=== PATIENT | female | born 1945 ===

== ENCOUNTER 2023-05-31 08:22 | Inpatient (IN) | payer MEDICARE, BC ==
[2023-05-31 08:35] LABS: BASOPHILS PERCENT AUTO 0.4 % (0.0-1.0); EOSINOPHILS PERCENT AUTO 1.8 % (1.0-3.0); HEMATOCRIT 39.3 % (37.0-47.0); HEMOGLOBIN 12.1 g/dL (12.0-16.0); MEAN CORPUSCULAR HEMOGLOBIN 31.3 pg (27.0-34.0); MEAN CORPUSCULAR HGB CONC 30.8 g/dL (33.0-35.0); MEAN CORPUSCULAR VOLUME 101.8 fL (80-100); MONOCYTES PERCENT AUTO 6.7 % (2-8); NEUTROPHILS PERCENT AUTO 78.1 % (42.2-75.2); PLATELET COUNT,PLT 260 10^3/uL (150-450); RED BLOOD CELL COUNT 3.86 10^6/uL (4.2-5.4)
[2023-05-31] MEDS: Sodium Chloride 0.9% 10 ML Syringe FLUSH PRN (08:52)
[2023-05-31 08:53] LABS: INR 0.9 (0.9-1.2); PROTHROMBIN TIME 9.5 SEC (9.0-12.0); PTT,PARTIAL THROMBOPLSTIN TIME 27.2 SEC (22.0-34.0)
[2023-05-31] MEDS ORDERED: Nitroglycerin 0.4 MG Tab.SL SL ONE (09:18)
[2023-05-31 09:32] LABS: A/G RATIO 0.9; ALBUMIN 3.8 g/dL (3.4-5.0); ANION GAP 15.8 mEq/L (7-13); BILIRUBIN TOTAL 0.4 mg/dL (0.2-1.0); BUN/CREATININE RATIO 11.5 (No establ ref range); C-REACTIVE PROTEIN 1.8 mg/dL (0.0-0.9); CALCIUM 8.5 mg/dL (8.5-10.1); CREATININE 0.96 mg/dL (0.55-1.02); EST CRCL DRUG DOSING (CG) 37.03 mL/min; MAGNESIUM 2.1 mg/dL (1.8-2.4); POTASSIUM,K 3.8 mmol/L (3.5-5.1); PROTEIN TOTAL,TP 7.9 g/dL (6.4-8.2)
[2023-05-31 09:36] LABS: LACTIC ACID 1.3 mmol/L (0.4-2.0)
[2023-05-31 10:49] LABS: BILIRUBIN,URINE NEGATIVE (NEGATIVE); COLOR,URINE YELLOW (YELLOW); GLUCOSE,URINE NEGATIVE (NEGATIVE); KETONES,URINE TRACE (NEGATIVE); LEUKOCYTE ESTERASE,URINE SMALL (NEGATIVE); NITRITE,URINE POSITIVE (NEGATIVE); OCCULT BLOOD,URINE TRACE-INTACT (NEGATIVE); PH,URINE 5.5 (5.0-9.0); PROTEIN,URINE NEGATIVE (NEGATIVE); UROBILINOGEN,URINE 0.2 mg/dL (0.2-1.0)
[2023-05-31] MEDS ORDERED: methylPREDNISolone Sodium Succinate 125 MG/2 ML SDV IVPUSH ONE (10:50)
[2023-05-31 10:51] LABS: APPEARANCE,URINE SLIGHTLY CLOUDY (CLEAR)
[2023-05-31] MEDS ORDERED: Cefuroxime 250 MG Tab PO ONE (10:52)
[2023-05-31 10:57] LABS: BACTERIA,URINE MANY /HPF (0-FEW/HPF); EPITHELIAL CELLS,URINE FEW /HPF (NOT SEEN); RBC,URINE NOT SEEN /HPF (0-5); WBC,URINE 20-30 /HPF (0-5/HPF)
[2023-05-31] MEDS ORDERED: Albuterol/Ipratropium 3.0-0.5 MG/3 ML Neb Soln NEB ONE ×2 (11:16→11:35)
[2023-05-31] MEDS ORDERED: Atenolol 50 MG Tab PO ONE (12:38)
[2023-05-31] MEDS ORDERED: Polyethylene Glycol 3350 Powder 17 GM Packet PO PRN (12:59)
[2023-05-31] MEDS ORDERED: Docusate Sodium 100 MG Cap PO PRN (12:59)
[2023-05-31] MEDS ORDERED: Amiodarone 200 MG Tab PO SCH ×2 (13:30→14:00)
[2023-05-31] MEDS ORDERED: amLODIPine 5 MG Tab PO SCH ×2 (13:31→14:00)
[2023-05-31] MEDS ORDERED: DILTIAZEM HCL 180 MG PO SCH (13:32)
[2023-05-31] MEDS ORDERED: Apixaban 5 MG Tab PO SCH ×2 (15:30→21:00)
[2023-05-31] MEDS: Ciprofloxacin 500 MG Tab PO SCH ×2 (15:55→20:21)
[2023-05-31] MEDS: Acetaminophen 325 MG Tab PO PRN ×2 (15:56→20:26)
[2023-05-31] MEDS: Pantoprazole 40 MG Tab.CR PO SCH (15:56)
[2023-05-31] MEDS: amLODIPine 5 MG Tab PO SCH ×2 (15:58→20:22)
[2023-05-31] MEDS: Diltiazem 180 MG Cap.CD PO SCH (15:58)
[2023-05-31] MEDS: Atenolol 50 MG Tab PO SCH ×2 (15:59→20:24)
[2023-05-31] MEDS: DULoxetine 30 MG Cap PO SCH (16:08)
[2023-05-31] MEDS: Magnesium Oxide 400 MG Tab PO SCH (16:09)
[2023-05-31] MEDS: busPIRone 15 MG Tab PO SCH ×2 (16:09→20:22)
[2023-05-31] MEDS: Levothyroxine 125 MCG Tab PO SCH (16:09)
[2023-05-31] MEDS: atorvaSTATin 20 MG Tab PO SCH (16:11)
[2023-05-31] MEDS: Pregabalin 75 MG Cap PO SCH (20:21)
[2023-05-31] MEDS: Apixaban 5 MG Tab PO SCH (20:21)
[2023-05-31] MEDS: Docusate Sodium 100 MG Cap PO SCH (20:21)
[2023-05-31] MEDS ORDERED: rOPINIRole 2 MG Tab PO SCH (21:00)
[2023-05-31] MEDS ORDERED: Non-Formulary Medication 1 Each (Ropinirole [Requip] 1 MG Tablet) PO SCH (21:00)
[2023-05-31] MEDS ORDERED: busPIRone 15 MG Tab PO SCH (21:00)
[2023-05-31] MEDS ORDERED: Atenolol 50 MG Tab PO SCH (21:00)
[2023-05-31] MEDS ORDERED: Docusate Sodium 100 MG Cap PO SCH (21:00)
[2023-05-31] MEDS ORDERED: oxyCODONE 5 MG Tab PO ONE (23:18)
[2023-06-01] MEDS: Acetaminophen 325 MG Tab PO PRN (03:44)
[2023-06-01] MEDS: Pantoprazole 40 MG Tab.CR PO SCH (06:10)
[2023-06-01] MEDS: Levothyroxine 125 MCG Tab PO SCH (06:10)
[2023-06-01] MEDS: Albuterol 0.083% 2.5 MG/3 ML Neb Soln NEB PRN (08:55)
[2023-06-01] MEDS ORDERED: Non-Formulary Medication 1 Each (Atorvastatin [Lipitor] 40 MG Tablet) PO SCH (09:00)
[2023-06-01] MEDS ORDERED: amLODIPine 5 MG Tab PO SCH (09:00)
[2023-06-01] MEDS ORDERED: Enoxaparin 40 MG/0.4 ML Syringe SUBCUT SCH (09:00)
[2023-06-01] MEDS ORDERED: TORSEMIDE 10 MG PO SCH (09:00)
[2023-06-01] MEDS ORDERED: Ferrous Sulfate 325 MG Tab PO SCH (09:00)
[2023-06-01] MEDS ORDERED: Non-Formulary Medication 1 Each (Sennosides [Senna] 8.6 MG Tablet) PO SCH ×2 (09:00)
[2023-06-01] MEDS ORDERED: Non-Formulary Medication 1 Each (Magnesium Oxide [Magnesium Oxide] 400 MG Tablet) PO SCH (09:00)
[2023-06-01] MEDS ORDERED: DILTIAZEM HCL 180 MG PO SCH (09:00)
[2023-06-01] MEDS ORDERED: DULoxetine 30 MG Cap PO SCH (09:00)
[2023-06-01] MEDS ORDERED: Non-Formulary Medication 1 Each (Calcium Carbonate/Vitamin D3 [Calcium 600 Mg-Vit D3 10mcg PO SCH (09:00)
[2023-06-01] MEDS ORDERED: Amiodarone 200 MG Tab PO SCH (09:00)
[2023-06-01] MEDS ORDERED: Levothyroxine 125 MCG Tab PO SCH (09:00)
[2023-06-01] MEDS ORDERED: Pantoprazole 40 MG Tab.CR PO SCH (09:00)
[2023-06-01] MEDS: Pregabalin 75 MG Cap PO SCH ×2 (09:52→22:02)
[2023-06-01] MEDS: Lidocaine 5% 700 MG Patch TOP SCH (09:52)
[2023-06-01] MEDS: DULoxetine 30 MG Cap PO SCH (09:53)
[2023-06-01] MEDS: amLODIPine 5 MG Tab PO SCH ×2 (09:53→22:00)
[2023-06-01] MEDS: Acetaminophen 325 MG Tab PO SCH ×3 (09:54→20:12)
[2023-06-01] MEDS: Docusate Sodium 100 MG Cap PO SCH ×2 (09:55→22:01)
[2023-06-01] MEDS: predniSONE 20 MG Tab PO SCH (09:56)
[2023-06-01] MEDS: Torsemide 20 MG Tab PO SCH (09:56)
[2023-06-01] MEDS: Calcium Carbonate/Vitamin D3 1250 MG-5 MCG Tab PO SCH (09:57)
[2023-06-01] MEDS: busPIRone 15 MG Tab PO SCH ×2 (09:57→22:02)
[2023-06-01] MEDS: Diltiazem 180 MG Cap.CD PO SCH (09:57)
[2023-06-01] MEDS: Atenolol 50 MG Tab PO SCH ×2 (09:58→22:00)
[2023-06-01] MEDS: Ferrous Sulfate 325 MG Tab PO SCH (09:59)
[2023-06-01] MEDS: atorvaSTATin 20 MG Tab PO SCH (09:59)
[2023-06-01] MEDS: Magnesium Oxide 400 MG Tab PO SCH (10:00)
[2023-06-01] MEDS: Ciprofloxacin 500 MG Tab PO SCH ×2 (10:01→22:02)
[2023-06-01] MEDS: Apixaban 5 MG Tab PO SCH ×2 (10:07→22:02)
[2023-06-01] MEDS: rOPINIRole 2 MG Tab PO SCH ×2 (10:07→22:02)
[2023-06-01] MEDS: ALPRAZolam 0.25 MG Tab PO SCH ×3 (10:56→22:03)
[2023-06-01] MEDS: Sodium Chloride 0.9% 10 ML Syringe FLUSH PRN ×2 (22:07→22:08)
[2023-06-02] MEDS: Albuterol 0.083% 2.5 MG/3 ML Neb Soln NEB PRN
[2023-06-02] MEDS: Acetaminophen 325 MG Tab PO SCH ×3 (02:37→05:07)
[2023-06-02] MEDS: Levothyroxine 125 MCG Tab PO SCH (05:06)
[2023-06-02] MEDS: Pantoprazole 40 MG Tab.CR PO SCH (05:07)
[2023-06-02 06:53] LABS: ANION GAP 11.6 mEq/L (7-13); BASOPHILS PERCENT AUTO 0.1 % (0.0-1.0); CALCIUM 7.5 mg/dL (8.5-10.1); CREATININE 0.9 mg/dL (0.55-1.02); EOSINOPHILS PERCENT AUTO 0.5 % (1.0-3.0); EST CRCL DRUG DOSING (CG) 39.5 mL/min; LYMPHOCYTES PERCENT AUTO 13.8 % (20.5-50.1); MEAN CORPUSCULAR HEMOGLOBIN 31.1 pg (27.0-34.0); MEAN CORPUSCULAR HGB CONC 29.7 g/dL (33.0-35.0); MEAN CORPUSCULAR VOLUME 104.8 fL (80-100); MONOCYTES PERCENT AUTO 8.2 % (2-8); NEUTROPHILS PERCENT AUTO 77.4 % (42.2-75.2); PLATELET COUNT,PLT 255 10^3/uL (150-450); POTASSIUM,K 3.6 mmol/L (3.5-5.1); RED BLOOD CELL COUNT 3.15 10^6/uL (4.2-5.4); WHITE BLOOD CELL COUNT,WBC 9.4 10^3/uL (5.0-10.0)
[2023-06-02 07:03] LABS: HEMOGLOBIN 9.8 g/dL (12.0-16.0)
[2023-06-02] MEDS: DULoxetine 30 MG Cap PO SCH (08:33)
[2023-06-02] MEDS: Diltiazem 180 MG Cap.CD PO SCH (08:33)
[2023-06-02] MEDS: amLODIPine 5 MG Tab PO SCH (08:33)
[2023-06-02] MEDS: Ciprofloxacin 500 MG Tab PO SCH (08:33)
[2023-06-02] MEDS: busPIRone 15 MG Tab PO SCH (08:33)
[2023-06-02] MEDS: Ferrous Sulfate 325 MG Tab PO SCH (08:33)
[2023-06-02] MEDS: atorvaSTATin 20 MG Tab PO SCH (08:33)
[2023-06-02] MEDS: Apixaban 5 MG Tab PO SCH (08:33)
[2023-06-02] MEDS: Pregabalin 75 MG Cap PO SCH (08:34)
[2023-06-02] MEDS: ALPRAZolam 0.25 MG Tab PO SCH (08:34)
[2023-06-02] MEDS: Calcium Carbonate/Vitamin D3 1250 MG-5 MCG Tab PO SCH (08:34)
[2023-06-02] MEDS: predniSONE 20 MG Tab PO SCH (08:34)
[2023-06-02] MEDS: Torsemide 20 MG Tab PO SCH (08:35)
[2023-06-02] MEDS: Atenolol 50 MG Tab PO SCH (08:35)
[2023-06-02] MEDS: Docusate Sodium 100 MG Cap PO SCH (08:35)
[2023-06-02] MEDS: Magnesium Oxide 400 MG Tab PO SCH (08:38)
[2023-06-02] MEDS ORDERED: traMADol 50 MG Tab PO ONE (08:44)
[2023-06-02] MEDS: Lidocaine 5% 700 MG Patch TOP SCH (08:45)
[2023-06-02] MEDS: rOPINIRole 2 MG Tab PO SCH (09:04)
== END 2023-06-02 11:51 | disposition home or self-care (01) | DRG 204 ==
LOC: DL.ED 08:22 → DL.MS 12:59 → DL.ED 14:00 → OBSVTOIN 06-01 16:39
PROVIDERS: ADMIT Emergency Medicine; ATTEND Emergency Medicine
DX: R06.03 Acute respiratory distress (principal); R09.02 Hypoxemia; N30.91 Cystitis, unspecified with hematuria; I10 Essential (primary) hypertension; R60.9 Edema, unspecified; G25.81 Restless legs syndrome; G89.29 Other chronic pain; M54.50 Low back pain, unspecified; N39.0 Urinary tract infection, site not specified; F41.9 Anxiety disorder, unspecified; E78.00 Pure hypercholesterolemia, unspecified; E03.9 Hypothyroidism, unspecified; Z20.822 Contact with and (suspected) exposure to COVID-19; Z99.81 Dependence on supplemental oxygen; Z91.040 Latex allergy status; Z88.5 Allergy status to narcotic agent; Z88.8 Allergy status to other drugs, medicaments and biological substances; Z79.01 Long term (current) use of anticoagulants; Z86.16 Personal history of COVID-19; Z98.890 Other specified postprocedural states; Z79.899 Other long term (current) drug therapy; Z95.0 Presence of cardiac pacemaker
CPT/HCPCS: 36415; 71045; 80053; 81001; 83605; 83735; 83880; 84145; 84484 ×2; 85025; 85379 ×2; 85610; 85730; 86140; 87086; 87088; 87186; 87804 ×2; 93005 ×2; 93010; 94640 ×2; 94667; 94668; 96374; 97165; 99285 ×2; A9270 ×45; G0378 ×3; J2930; J7512; U0002; 72100; 80048; J3490; J7613-GY; J7620-GY